=== PATIENT | male | born 1985 | race Caucasian/White ===

== ENCOUNTER 2016-07-23 06:37 | Emergency (ER) | payer OTHER ==
[2016-07-23] MEDS ORDERED: ONDANSETRON 4 MG/2 ML VIAL IVP STA (06:50)
[2016-07-23] MEDS ORDERED: SODIUM CHLORIDE 0.9% 2,000 ML IV ONE (06:50)
[2016-07-23] MEDS ORDERED: ONDANSETRON 4 MG/2 ML VIAL ONE (07:19)
[2016-07-23] MEDS ORDERED: IBUPROFEN 800 MG TABLET PO STA (07:25)
[2016-07-23] MEDS ORDERED: IBUPROFEN 800 MG TABLET PO ONE (07:33)
== END 2016-07-23 10:15 | disposition home or self-care (01) ==
DX: B34.9 Viral infection, unspecified (principal); E86.0 Dehydration
CPT/HCPCS: 36415; 71020; 80053; 83690; 85025; 87275; 87276; 96374; 99283; 99284; A9270

== ENCOUNTER 2018-05-26 22:53 | Emergency (ER) | payer OTHER ==
[2018-05-26] MEDS ORDERED: ONDANSETRON 4 MG/2 ML VIAL IVP STA (23:04)
[2018-05-26] MEDS ORDERED: SODIUM CHLORIDE 0.9% 1,000 ML IV ONE (23:04)
--- NOTE | 2018-05-26 23:05 | ED Physician Documentation ---
PD HPI ABD PAIN - Stated complaint Stated Complaint: ABD PX - Chief complaint Chief Complaint: Abd Pain - History of Present Illness Timing - onset: How many days ago (3) Timing - duration: Other (intermitten episodes of diarrhea) Timing - details: Gradual onset, Intermittant, Waxing and waning Severity Comments: moderate Quality: Cramping, Sharp Location: RLQ, LLQ Radiation: Other (no radiation) Improved by: Other (nothing) Worsened by: Other (nothing) Associated symptoms: Nausea, Diarrhea, Hematochezia. No: Fever, Hematemesis, Melena, Hematuria, Chest pain Similar symptoms before: No diagnosis Recently seen: Not recently seen Review of Systems Constitutional: denies: Fever, Chills Eyes: denies: Discharge Ears: denies: Ear pain Nose: denies: Congestion Throat: denies: Sore throat Cardiac: denies: Chest pain / pressure Respiratory: denies: Dyspnea GI: reports: Abdominal Pain, Nausea, Diarrhea : denies: Dysuria Skin: denies: Rash Neurologic: denies: Generalized weakness Immunocompromised: denies: Chemotherapy PD PAST MEDICAL HISTORY - Past Surgical History Past Surgical History: No - Present Medications Home Medications: Ambulatory Orders Medication Instructions Recorded Confirmed Ondansetron HCl [Zofran] 4 mg PO Q6HR PRN #30 tablet 05/27/18 - Allergies Allergies/Adverse Reactions: Allergies Allergy/AdvReac Type Severity Reaction Status Date / Time No Known Drug Allergies Allergy Verified 05/26/18 22:59 - Social History Does the pt smoke?: No Smoking Status: Never smoker Does the pt drink ETOH?: Yes Does the pt have substance abuse?: No - Immunizations Immunizations are current?: Yes - POLST Patient has POLST: No PD ED PE NORMAL - General General: Alert and oriented X 3, No acute distress - HEENT HEENT: Atraumatic, PERRL, EOMI, Ears normal - Neck Neck: Supple, no meningeal sign - Cardiac Cardiac: RRR, Strong equal pulses - Respiratory Respiratory: No respiratory distress, Clear bilaterally - Abdomen Abdomen: Soft, Non distended. No: Non tender (diffuse lower abdominal tenderness, no rebound or peritoneal signs) - Derm Derm: Normal color - Extremities Extremities: No deformity - Neuro Neuro: Alert and oriented X 3, Normal speech - Psych Psych: Normal affect Results - Vitals Vitals: Vital Signs - 24 hr 05/26/18 05/27/18 22:55 00:56 Temperature 36.3 C L Heart Rate 75 66 Respiratory 16 16 Rate Blood Pressure 141/84 H 122/68 O2 Saturation 97 97 Oxygen O2 Source Room air - Labs Labs: Laboratory Tests 05/26/18 05/26/18 05/26/18 23:15 23:25 23:25 WBC 6.4 RBC 4.57 L Hgb 13.8 L Hct 39.4 L MCV 86.2 MCH 30.2 MCHC 35.0 RDW 12.7 Plt Count 243 MPV 8.9 Neut # (Auto) 3.3 Lymph # (Auto) 2.1 Stanley # (Auto) 0.8 Eos # (Auto) 0.1 Baso # (Auto) 0.0 Absolute Nucleated RBC 0.00 Nucleated RBC % 0.0 Sodium 137 Potassium 3.5 Chloride 105 Carbon Dioxide 24 Anion Gap 8.0 BUN 17 Creatinine 1.1 Estimated GFR (MDRD) 79 L Glucose 102 H Calcium 8.7 Total Bilirubin 0.4 AST 23 ALT 20 Alkaline Phosphatase 72 Total Protein 7.1 Albumin 4.2 Globulin 2.9 Albumin/Globulin Ratio 1.4 Lipase 33 Urine Color YELLOW Urine Clarity CLEAR Urine pH 6.5 Ur Specific [place] <=1.005 Urine Protein NEGATIVE Urine Glucose (UA) NEGATIVE Urine Ketones NEGATIVE Urine Occult Blood NEGATIVE Urine Nitrite NEGATIVE Urine Bilirubin NEGATIVE Urine Urobilinogen 0.2 (NORMAL) Ur Leukocyte Esterase NEGATIVE Ur Microscopic Review NOT INDICATED Urine Culture Comments NOT INDICATED - Rads (name of study) CT abd/pelvis Radiology: Final report received, See rad report (IMPRESSION: Normal abdomen and pelvis CT) PD MEDICAL DECISION MAKING - ED course ED course: Reevaluation the patient is resting comfortably and appears to be in no acute distress. The patient was unable to give any stool sample to assess his diarrhea. Presently the patient appears appropriate for discharge and ongoing outpatient management. I discussed with him warning signs and recommended returning to the emergency department immediately for any worsening or any concerns. Departure - Departure Disposition: 01 Home, Self Care Clinical Impression: Abdominal pain Qualifiers: Abdominal location: lower abdomen, unspecified Qualified Code(s): R10.30 - Lower abdominal pain, unspecified Condition: Good Instructions: Abdominal Pain, Diarrhea Follow-Up: CARLENE DALY MD [Primary Care Provider] - Within 1 week Prescriptions: Ondansetron HCl [Zofran] 4 mg PO Q6HR PRN #30 tablet PRN Reason: Nausea / Vomiting Comments: Please return to the emergency department for worsening symptoms or any concerns
[2018-05-26] MEDS ORDERED: KETOROLAC 15 MG/ML VIAL IVP STA (23:29)
[2018-05-26] MEDS ORDERED: IOVERSOL 320 100 ML VIAL IVP ONE (23:37)
[2018-05-26 23:53] LABS: BILIRUBIN,URINE NEGATIVE (NEGATIVE); GLUCOSE, URINE (UA) NEGATIVE (NEGATIVE); KETONES,URINE (UA) NEGATIVE (NEGATIVE); LEUKOCYTE ESTERASE, URINE NEGATIVE (NEGATIVE); NITRITE,URINE NEGATIVE (NEGATIVE); OCCULT BLOOD,URINE NEGATIVE (NEGATIVE); PH,URINE 6.5 PH (5.0-7.5); PROTEIN,URINE NEGATIVE (NEGATIVE); UROBILINOGEN,URINE 0.2 (NORMAL) E.U./dL (NORMAL)
[2018-05-26 23:54] LABS: BASOPHILS % (AUTO) 0.6 %; EOSINOPHILS # (AUTO) 0.1 10^3/uL (0.0-0.7); EOSINOPHILS % (AUTO) 1.8 %; HGB - HEMOGLOBIN 13.8 g/dL (14.0-18.0); LYMPHOCYTES # (AUTO) 2.1 10^3/uL (1.5-3.5); MEAN CORPUSCULAR HEMOGLOBIN 30.2 pg (27.0-31.0); MEAN CORPUSCULAR VOLUME 86.2 fL (80.0-94.0); MEAN PLATELET VOLUME 8.9 fL (7.4-11.4); MONOCYTES # (AUTO) 0.8 10^3/uL (0.0-1.0); MONOCYTES % (AUTO) 12.2 %; NEUTROPHILS # (AUTO) 3.3 10^3/uL (1.5-6.6); NEUTROPHILS % (AUTO) 52.4 %; PLT - PLATELET COUNT 243 10^3/uL (130-450); RED BLOOD COUNT 4.57 10^6/uL (4.70-6.10); RED CELL DISTRIBUTION WIDTH 12.7 % (12.0-15.0); WHITE BLOOD COUNT 6.4 x10^3/uL (4.8-10.8)
[2018-05-26 23:58] LABS: CLARITY,URINE CLEAR (CLEAR)
[2018-05-27 00:08] LABS: ALBUMIN 4.2 g/dL (3.2-5.5); ALBUMIN/GLOBULIN RATIO 1.4 (1.0-2.2); BILIRUBIN,TOTAL 0.4 mg/dL (0.2-1.0); CALCIUM 8.7 mg/dL (8.5-10.3); CREATININE 1.1 mg/dL (0.6-1.2); TOTAL PROTEIN 7.1 g/dL (6.7-8.2)
[2018-05-27] MEDS ORDERED: IOVERSOL 320 100 ML VIAL IVP ONE (00:41)
--- NOTE | 2018-05-27 00:57 | CT Report ---
Reason: lower abdominal pain Procedure Date: 05/27/2018 Accession Number: [id number] / [id number] Procedure: CT - Abdomen/Pelvis W/ CPT Code: FULL RESULT: EXAM: CT ABDOMEN AND PELVIS EXAM DATE: 05/27/2018 12:40 AM. CLINICAL HISTORY: Lower abdominal pain. COMPARISONS: None. TECHNIQUE: Routine helical CT imaging was performed through the abdomen and pelvis. IV contrast: OPTI 320 100mL. Enteric contrast: No. Reconstructions: Coronal and sagittal. In accordance with CT protocol optimization, one or more of the following dose reduction techniques were utilized for this exam: automated exposure control, adjustment of mA and/or KV based on patient size, or use of iterative reconstructive technique. FINDINGS: Lung Bases: Unremarkable. Liver: Normal. No masses. Gallbladder/Bile Ducts: Unremarkable. Spleen: Normal. Pancreas: Normal. Adrenal Glands: Normal. Kidneys: Normal. No masses or hydronephrosis. Peritoneal Cavity/Bowel: Normal. No free fluid, free air or adenopathy. No masses or acute inflammatory process. The appendix is well visualized and normal. Pelvic Organs: Normal. The bladder and visualized pelvic organs are within normal limits. Vasculature: No aneurysms or other significant abnormality. Bones: No significant abnormality. Other: None. IMPRESSION: Normal abdomen and pelvis CT. No evident etiology for patient's pain. RADIA
[2018-05-27 01:23] VITALS: BP 108/76
== END 2018-05-27 01:24 | disposition home or self-care (01) ==
LOC: ED 22:53
DX: R10.30 Lower abdominal pain, unspecified (principal)
CPT/HCPCS: 36415; 74177; 80053; 81003; 83690; 85025; 96361; 96374; 96375; 99283; Q9967; 81001; 87086; 87798

== ENCOUNTER 2018-08-03 07:51 | Emergency (ER) | payer OTHER ==
[2018-08-03 08:02] VITALS: BP 133/85
[2018-08-03] MEDS ORDERED: DEXAMETHASONE 10 MG/ML VIAL PO STA (08:32)
--- NOTE | 2018-08-03 08:34 | ED Physician Documentation ---
PD HPI URI - Stated complaint Stated Complaint: FLU LIKE SX - Chief complaint Chief Complaint: General - History obtained from History obtained from: Patient - History of Present Illness Timing - onset: How many days ago (5) Timing duration: Days (5) Timing details: Gradual onset, Still present, Waxing and waning Associated symptoms: Fever, Chills, Nasal congestion, Rhinorrhea, Dry cough Contributing factors: Sick contact Improves by: Rest, Medication Similar symptoms before: Diagnosis (bronchitis) Recently seen: Not recently seen - Additional information Additional information: 33-year-old male previously healthy has developed a cough and congestion with muscle aches and pains about 5 days ago. He did have fever and chills with this and that resolved as did the muscle aches and his cough is gotten worse. The patient indicates that both his and daughter are sick his daughter is sick with strep his is sick with pneumonia. Review of Systems Constitutional: reports: Fever, Chills, Myalgias, Fatigue Eyes: denies: Decreased vision Ears: denies: Ear pain Nose: reports: Rhinorrhea / runny nose, Congestion Throat: reports: Sore throat Cardiac: denies: Chest pain / pressure, Palpitations Respiratory: reports: Cough. denies: Dyspnea GI: reports: Vomiting. denies: Abdominal Pain, Nausea : denies: Dysuria, Frequency PD PAST MEDICAL HISTORY - Past Medical History Cardiovascular: None Respiratory: None Neuro: None Endocrine/Autoimmune: None GI: None : None HEENT: None Psych: None Musculoskeletal: None Derm: None - Past Surgical History Past Surgical History: No - Present Medications Home Medications: Ambulatory Orders Medication Instructions Recorded Confirmed Amox/Clav 875/125 [Augmentin] 1 each PO Q12H #20 tablet 08/03/18 - Allergies Allergies/Adverse Reactions: Allergies Allergy/AdvReac Type Severity Reaction Status Date / Time No Known Drug Allergies Allergy Verified 08/03/18 08:03 - Social History Does the pt smoke?: No Smoking Status: Never smoker Does the pt drink ETOH?: Yes Does the pt have substance abuse?: No - Immunizations Immunizations are current?: Yes - POLST Patient has POLST: No PD ED PE NORMAL - General General: Alert and oriented X 3, No acute distress, Well developed/nourished - HEENT HEENT: Atraumatic, PERRL, EOMI, Moist mucous membranes, Pharynx benign, Other (Right TM is inflamed along a rounded umbo. 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, No motor deficit, No sensory deficit, Normal speech Eye Opening: Spontaneous Motor: Obeys Commands Verbal: Oriented GCS Score: 15 - Psych Psych: Normal mood, Normal affect Results - Vitals Vitals: Vital Signs - 24 hr 08/03/18 07:59 Temperature 36.1 C L Heart Rate 93 Respiratory 16 Rate Blood Pressure 133/85 H O2 Saturation 97 Oxygen O2 Source Room air PD MEDICAL DECISION MAKING - ED course Complexity details: considered differential, d/w patient ED course: 33-year-old male previously well has what appears to be a bimodal illness with myalgias improving and cough worsening he appears to have otitis on exam. He is treated with dexamethasone 10 mg orally and we will place him on some Augmentin. Departure - Departure Disposition: 01 Home, Self Care Clinical Impression: Otitis media Qualifiers: Otitis media type: suppurative Chronicity: acute Laterality: bilateral Recurrence: not specified as recurrent Spontaneous tympanic membrane rupture: without spontaneous rupture Qualified Code(s): H66.003 - Acute suppurative otitis media without spontaneous rupture of ear drum, bilateral Condition: Stable Instructions: ED Otitis Media Acute Adult Follow-Up: CARLENE DALY MD [Primary Care Provider] - Prescriptions: Amox/Clav 875/125 [Augmentin] 1 each PO Q12H #20 tablet Forms: Activity restrictions
== END 2018-08-03 08:41 | disposition home or self-care (01) ==
LOC: ED 07:51
DX: H66.003 Acute suppurative otitis media without spontaneous rupture of ear drum, bilateral (principal)
CPT/HCPCS: 99283

== ENCOUNTER 2018-08-06 12:43 | Outpatient (CLI) | payer OTHER ==
--- NOTE | 2018-08-07 20:36 | MRI Report ---
Reason: PAIN IN RIGHT KNEE Procedure Date: 08/06/2018 Accession Number: [id number] / [id number] Procedure: MRI - Knee RT W/O CPT Code: FULL RESULT: EXAM: RIGHT KNEE MRI WITHOUT CONTRAST EXAM DATE: 08/06/2018 01:06 PM. CLINICAL HISTORY: Right knee pain for 2 weeks after twisting injury on trampoline. COMPARISON: None. TECHNIQUE: Multiplanar, multisequence T1-weighted and fluid-sensitive sequences of the knee without contrast. Other: None. FINDINGS: Bones: No fractures or subluxations. No marrow edema. No bone lesions. Articular Cartilage: Unremarkable. Medial Meniscus: The medial meniscus is intact. Lateral Meniscus: The lateral meniscus is intact. Cruciate Ligaments: There is a full-thickness or near full-thickness tear at the proximal aspect of the anterior cruciate ligament. The posterior cruciate ligament is unremarkable. Collateral Ligaments: The medial collateral and lateral collateral ligamentous structures are intact. Tendons: The quadriceps, patellar, semimembranosus, and popliteus tendons are unremarkable. Musculature: No edema or fatty atrophy. Other: Small joint effusion. A medial synovial plica with a maximum thickness of 2 mm is present. No popliteal cyst. No loose bodies. The medial and lateral retinacula are intact. The subcutaneous tissues and fat pads are unremarkable. IMPRESSION: 1. Full-thickness or near full-thickness tear at the proximal aspect of the anterior cruciate ligament. 2. Small joint effusion. 3. Medial synovial plica with a maximum thickness of approximately 2 mm. [facility] MUSCULOSKELETAL RADIOLOGY SECTION
== END 2018-08-06 12:44 | disposition home or self-care (01) ==
LOC: DI 12:43
PROVIDERS: ATTEND General Practice
DX: S83.511A Sprain of anterior cruciate ligament of right knee, initial encounter (principal); M25.461 Effusion, right knee; M67.51 Plica syndrome, right knee

== ENCOUNTER 2018-09-22 06:03 | Day surgery (SDC) | payer OTHER ==
[2018-09-22] MEDS ORDERED: ceFAZolin 2 GM/50 ML 2 GM/50 ML BAG IV ONE (06:22)
[2018-09-22] MEDS ORDERED: LACTATED RINGERS 1,000 ML IV ONE ×2 (06:59→10:49)
--- NOTE | 2018-09-22 07:01 | ANESTHESIA ---
Pre-Anesthesia VS, & Labs - Diagnosis right acl tear - Procedure right arthroscopic anterior cruciate ligament repair Vital Signs: Temp Pulse Resp BP Pulse Ox 36.5 C 62 16 129/89 H 98 09/22/18 06:26 09/22/18 06:26 09/22/18 06:26 09/22/18 06:26 09/22/18 06:26 Height 6 ft Weight (kg) 99.79 kg Body Mass Index 30.5 - NPO >8 hours Home Medications and Allergies Home Medications: Ambulatory Orders No Known Home Medications 09/19/18 No Known Home Medications 09/19/18 Allergies/Adverse Reactions: Allergies Allergy/AdvReac Type Severity Reaction Status Date / Time No Known Drug Allergies Allergy Verified 09/19/18 13:42 Anes History & Medical History - Anesthetic History Anesthesia Complications: reports: No previous complications Family history of Anesthesia Complications: Denies Family history of Malignant Hyperthermia: Denies - Medical History Cardiovascular: reports: Hypertension Pulmonary: reports: None Gastrointestinal: reports: None Urinary: reports: None Neuro: reports: None Musculoskeletal: reports: Other Endocrine/Autoimmune: reports: None Blood Disorders: reports: None Skin: reports: None Smoking Status: Never smoker Exam General: Alert, Oriented x3, Cooperative, No acute distress Dental: Other (caps) Mouth Openin Fingerbreadth Neck Mobility: Normal Mallampati classification: II Thyromental Distance: greater than 6 cm Respiratory: Lungs clear, Normal breath sounds, No respiratory distress, No accessory muscle use Cardiovascular: Regular rate, Normal S1, Normal S2, No murmurs Mental/Cognitive Status: Alert/Oriented X3, Normal for patient Plan Anesthesia Type: General, Adductor Block Consent for Procedure(s) Verified and Reviewed: No Code Status: Attempt Resuscitation ASA classification: 2-Mild systemic disease Is this case an emergency?: No
[2018-09-22] MEDS ORDERED: BUPIVACAINE 0.25% PF 10 ML VIAL ONE (07:21)
[2018-09-22] MEDS ORDERED: EPINEPHrine 1 MG/ML AMP ONE (07:30)
[2018-09-22] MEDS ORDERED: GABAPENTIN 400 MG CAPSULE ONE (07:31)
[2018-09-22] MEDS ORDERED: CELECOXIB 100 MG CAPSULE PO ONE (07:32)
[2018-09-22] MEDS ORDERED: fentaNYL 250 MCG/5 ML VIAL IVP ONE (08:00)
[2018-09-22] MEDS ORDERED: ONDANSETRON 4 MG/2 ML VIAL IVP ONE (08:00)
[2018-09-22] MEDS ORDERED: LIDOCAINE-MPF 2% 5 ML VIAL IM ONE (08:00)
[2018-09-22] MEDS ORDERED: ACETAMINOPHEN 1,000 MG/100 ML 100 ML IV ONE (08:00)
[2018-09-22] MEDS ORDERED: DEXAMETHASONE 4 MG/ML VIAL IVP ONE (08:00)
[2018-09-22] MEDS ORDERED: MIDAZOLAM 2 MG/2 ML VIAL IVP ONE (08:00)
[2018-09-22] MEDS ORDERED: PROPOFOL 200 MG/20 ML VIAL IVP ONE (08:00)
[2018-09-22] MEDS ORDERED: BUPIVACAINE 0.25% PF 30 ML VIAL SUBQ ONE ×2 (08:21)
[2018-09-22] MEDS ORDERED: oxyCODONE 5 MG TABLET PO PRN (10:45)
[2018-09-22] MEDS ORDERED: ONDANSETRON 4 MG/2 ML VIAL ONE (10:45)
[2018-09-22] MEDS ORDERED: ONDANSETRON 4 MG/2 ML VIAL IVP PRN (10:45)
--- NOTE | 2018-09-22 10:45 | OPERATIVE REPORT ---
Operative Report - General Procedure Date: 09/22/18 Planned Procedure: Right ACL reconstruction Pre-Op Diagnosis: Right ACL Tear Procedure Performed: Right ACL Reconstruction with BTB autograft Plica excision (debridement) Loose body removal Post Op Diagnosis: Loose bodies. torn acl. medial plica - Procedure Note Primary Surgeon: David Olguin Secondary Surgeon: Luis Miguel Bueno Estimated Blood Loss (mL): 25 Complications: None - Other Other Information/Narrative: Indication For Surgery: 33-year-old male tore his right ACL while jumping on a trampoline zone in May. He performed rehabilitation and got near full strength and full range of motion yet his leg continued to feel unstable with daily activities. He desires to return to cutting sports and have full activities without limitations. The risks, benefits, and alternatives were d iscussed. Risks include pain, bleeding, infection, damage to nearby structures and cartilage, lack of symptom relief, need for further surgery, DVT, PE, stroke, and . Written consent was obtained. Examination Under Anesthesia: ROM equal to the contralateral side. Stable dial at 30 & 90 degrees. Stable to varus and valgus stressing at 0 & 30 degrees. 2B Vinicio. Abnormal Pivot shift. No mechanical sensation Diagnostic Arthroscopy: 2 Small soft loose bodies were removed. Synovium showed a medial plica that was resected. Patella cartilage normal. Trochlear cartilage normal. Medial femoral condyle cartilage normal. Medial tibial plateau cartilage normal. Medial meniscus normal. ACL was torn off of the lateral femur and scarred into place. PCL was normal. Lateral femoral condyle cartilage normal. Lateral tibial plateau cartilage normal. Lateral meniscus normal. Procedure in Detail: The patient was met in the pre-operative hold area on the day of the procedure. The operative extremity was signed and questions were answered. The patient was brought to the operating room and a general anesthetic was administered. Supine position was used and bony prominences were padded. An examination under anesthesia was performed. Standard prepping and draping was performed. A time out confirmed patient identification, laterality, procedure, allergies, antibiotics, and images. An Esmarch was used to exsanguinate the limb and the tourniquet was elevated to 250 mmHg. Total tourniquet time was 122 minutes. Patellar Tendon Graft [place]: A 6 cm incision was made just medial to the midline of the knee from the inferior pole of the patellar tendon to the tibial tubercle. Sharp dissection was brought down to the peritenon and full-thickness skin flaps were created. I then made a midline longitudinal incision in the peritenon and dissected it off the underlying patellar tendon. I then measured the width of the tendon and made farrar for the central third. A 10 blade was used to cut the tendon at these farrar in line with its fibers from the patella to the tibial tubercle. I then used Bovie electrocautery to kobe out my patellar and tibial bone blocks at 20 mm for the patella and a 30 mm for the tibia. I then straighten the knee and harvested a triangular bone block from the patella and a trapezoidal bone block from the tibia using a sagittal saw and a curved osteotome. There were no associated fractures. I then brought the graft to the back table and prepped it for the tibia to be 10 mm and the patella to be 9.5 mm. The patella was bulletized in a single 2.0 mm drill hole was placed. 2 drill holes were placed in the tibia. The final patellar bone block was 22 mm, tendon was 43 mm, tibial bone block was 30 mm, for a total length of 95. A standard diagnostic arthroscopy of the knee was performed through anterolateral and anteromedial portal sites. The anteromedial portal was created under direct visualization after localizing with a spinal needle. The findings can be found above. I then proceeded to remove the loose bodies with a sucker shaver. I also used the shaver to take down the medial plica. ACL Prep: I then used a sucker shaver and a radiofrequency ablation wand to release all residual ACL tissue off of the lateral wall. I debrided all excess tissue from the notch. I placed the camera into the anteromedial portal and ensured that I was cleared all the way to the back wall. I then brought the flip cutter aiming device through the lateral portal. I positioned into the central position of the [place] ACL footprint on the femur ensuring to leave a 2 mm back wall and stay off of the distal articular cartilage. Once satisfied with the position, the bullet was brought down to the skin and a kobe was made. A 3 cm longitudinal skin incision was made and the IT band was split in line with its fibers. A sen rake was used to retract the IT band posterior and the bullet was brought down to the lateral femoral wall. A 9mm flip cutter was then drilled into the notch. It was then flipped and the lateral wall was scored confirming an appropriate position. The bullet was then malleted into place and a 25mm femoral tunnel was drilled. Bony debris was removed with a shaver. A fiberstick suture was brought into the joint, retrieved out the lateral portal, and clamped to itself. I then identified the ACL footprint on the tibia and set the tibial guide at 55. I aimed to have the guide pin come out 7 mm anterior to the PCL and in line with the posterior borders of the anterior horn of the lateral meniscus, on the lateral border of the medial tibial spine. The guidewire was then brought into the joint. The knee was then straightened to confirm that it would not impinge on the notch. The guidewire was clamped with a [place]. The skin was then protected and the tibial tunnel was drilled with the appropriate sized reamer. The fiberwire was then brought through the tibial tunnel. The graft was then loaded onto the tightrope and the graft was marked at end of the bone block. The tightrope sutures were then passed and the button was brought out of the skin over the lateral femur. Point the femoral bone block was in the notch. I then grabbed the bone block with a Vipul and pushed posteriorly to be in line with the femoral tunnel. The bone block was then delivered into the femoral tunnel and the ink farrar could no longer be seen. I then sequentially tightened the tight rope sutures and guided the button back down beneath the IT band and visualized it on the lateral femoral cortex. The knee was then cycled 20 times with tension on the graft. I then placed a large bump under the distal femur the pulled on the tibial bone block sutures. There was 0 mm of excess bone block coming from the tibia. A posterior drawer was placed on to the proximal tibia. The guidewire was then placed into the tibial tunnel and the tibial screw was placed with excellent bony purchase. Vinicio had been restored. I then brought the arthroscope back into the joint and probed the graft finding it to have excellent tension. Final images were taken. Excess tibial bone block was removed with a rongeur and the wounds were copiously irrigated. I then placed morselized bone into the patellar defect and DBX putty into the tibial defect. The peritenon was then closed with a running 0 Vicryl. The IT band was closed with interrupted 0 Vicryl, the subdermal tissues with 2 O Vicryl, and the skin with running Monocryl. Steri-Strips were applied and 20 cc of 0.5% Marcaine was placed under the incisions. The tourniquet was then dropped and a sterile dressing was placed. In the process of straightening the knee a small clunk was felt. I then performed a Vinicio exam and found it to be 1A, the pivot shift was negative. I therefore concluded that the sensation I felt was not related to the ACL graft. The ROM brace was placed and was locked out in full extension. He was awakened and transferred to the recovery room. In the recovery room in AP notch and lateral x-ray of the knee showed excellent position of the bone blocks and the implants without complication.
[2018-09-22] MEDS ORDERED: HYDROmorphone 0.5 MG/0.5 ML SYRINGE ONE (11:04)
--- NOTE | 2018-09-22 11:28 | XRAY Report ---
Reason: post operative Procedure Date: 09/22/2018 Accession Number: [id number] / [id number] Procedure: XR - Knee 2 View RT CPT Code: FULL RESULT: EXAM: RIGHT KNEE RADIOGRAPHY EXAM DATE: 09/22/2018 10:41 AM. CLINICAL HISTORY: Postoperative. COMPARISON: KNEE RT W/O 08/06/2018 1:06 PM. TECHNIQUE: 3 views. FINDINGS: Bones: There are interval operative changes status post ACL reconstruction with a patellar tendon graft with soft tissue anchor overlying the lateral femoral condyle and anchoring device in the proximal tibia. Tibial tendon graft harvest site appears uncomplicated. The bone tunnels appear orthotopically positioned. Joints: No dislocation or subluxation. Postoperative air and fluid within the suprapatellar bursa. Soft Tissues: Mild expected postsurgical soft tissue swelling. IMPRESSION: Expected findings following ACL reconstruction with patella tendon graft as described. No evidence of immediate complication. RADIA
[2018-09-22] MEDS ORDERED: METOCLOPRAMIDE 10 MG/2 ML VIAL ONE (11:30)
[2018-09-22] MEDS ORDERED: oxyCODONE 5 MG TABLET ONE (11:54)
[2018-09-22 12:09] VITALS: BP 130/78
== END 2018-09-22 06:04 | disposition home or self-care (01) ==
LOC: SDS 06:03
PROVIDERS: ATTEND Orthopaedic Surgery
PROC: 0LBN0ZZ Excision of Right Lower Leg Tendon, Open Approach (ICD-10-PCS; 2018-09-22)
PROC: 0MRN47Z Replacement of Right Knee Bursa and Ligament with Autologous Tissue Substitute, Percutaneous Endoscopic Approach (ICD-10-PCS; principal; 2018-09-22 07:30)
DX: S83.511A Sprain of anterior cruciate ligament of right knee, initial encounter (principal); M67.51 Plica syndrome, right knee; I10 Essential (primary) hypertension; Z87.891 Personal history of nicotine dependence
CPT/HCPCS: 29888; 73560; A9270; C1713; J0131; J0690; J1170; J2765; J3010; J7120

== ENCOUNTER 2020-12-06 13:31 | Outpatient (CLI) | payer OTHER ==
[2020-12-06 14:05] VITALS: BP 137/84
--- NOTE | 2020-12-06 14:05 | SLEEP CARE CONSULTATION ---
Information from patient questionnaire entered by Mariela Quijano. I have reviewed and concur with the information entered by Mariela Quijano. This document represents the service I personally performed and the decisions made by me, Bernadette Vann ARNP. History of Present Illness Service Date and Time: 12/06/2020 1331 Reason for Visit: New patient Chief Complaint: reports: Unrefreshed sleep, Snoring, Excessive daytime sleepiness, Observed pauses in breathing, Fatigue Date of Onset: 5 years plus Usual bedtime: 9 - 10 pm Time it takes to fall asleep: 3-5 minutes Snores at night: Yes Observed to quit breathing while asleep: Yes Sleeps alone due to snoring: No Number of times waking at night: 0-1 Reasons for waking at night: reports: Choking, Snoring, Gasping for air (in his sleep), Other (noise) Toss, Turn, or Twitch while sleeping: Yes Recalls having dreams: Yes (sometimes) Usually gets out of bed at: work days - 5 am, weekends 8-9 am Feels refreshed in the morning: No Morning headache: No Sleepy or fatigued during the day: Yes Ever fallen asleep while driving: Yes (no accidents) Takes day naps: Yes (daily for about 20 minutes to an hour) Dreams during day naps: Yes (sometimes) Prior sleep studies: No Additional HPI information: I had the pleasure of seeing JOSHUA RAMIREZ today regarding the possibility of him having a sleep disorder. His current complaints are observed pauses in breathing, excessive daytime sleepiness, fatigue, snoring and unrefreshed sleep. He states he is always tired even if he gets over 8 hours of sleep at night. He snores but doesn't think it is very loud. His ex- has told him he has pauses in breathing and gasps in his sleep. He has times where he has been drowsy while driving but no accidents. He has multiple family members with obstructive sleep apnea that are on treatment. 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 Patient is and lives in [place]. Have you smoked in the past 12 months: No Cigarettes per day (20/pack): 20 Years of smokin Quit date: 2007 Smoking Pack Years: 5.0 Alcohol use: Yes Alcohol amount and frequency: 2-3 drinks 2-3 times a week Caffeine use: Yes Caffeine amount and frequency: 2 drinks 5 days a week Family History Family history of sleep disordered breathing: Yes Family Hx Sleep Apnea: Mother: Snoring, Sleep apnea - Treated, Father: Snoring, Sibling: Snoring, Sleep apnea - Treated Allergies and Home Medications Drug allergies reviewed: Yes (NKDA) Home medication list reviewed: Yes (no daily medications or supplements) Review of Systems Cardiovascular: denies: high blood pressure Gastrointestinal: reports: heartburn Neurological: denies: headaches Psychiatric: denies: anxiety, depression Ear/Nose/Throat: reports: wisdom teeth removed. denies: tonsillectomy Endocrine: denies: thyroid disease Physical Exam Blood Pressure: 137/84 Cuff size: wrist Heart Rate: 76 O2 Saturation: 97 Height: 6 ft Weight: 248 lb (with boots) Body Mass Index: 33.6 BMI Classification: Obese Neck circumference: 16.5 (inches) Soft palate: long Hard palate: normal Uvula: normal Uvula visualization: 50% Mallampati Class II Tongue: enlarged in size with teeth farrar on lateral edges Tonsils: small Neck: normal w/o lymphadenopathy or thyromegaly Heart: irregular rhythm Lungs: clear bilaterally Impression and Plan 1. Suspected Obstructive Sleep Apnea-Hypopnea Syndrome, as suggested by a history of loud and irregular snoring, observed cessation of breath while asleep, gasping or choking in sleep, unrefreshed sleep, cognitive impairment, and excessive daytime sleepiness. Narrow oropharynx and obesity are common predisposing factors for obstructive sleep apnea-hypopnea syndrome. I recommend proceeding to polysomnography to confirm the diagnosis and to assess severity. If the patient has significant sleep disordered breathing, a manual CPAP titration study will also be performed to find the optimal treatment pressure. I informed the patient of what the sleep studies involve and after some di scussion, obtained agreement to proceed. The pathophysiology of obstructive sleep apnea-hypopnea syndrome was discussed with the patient and health risks of cardiovascular and cerebrovascular disease if not treated. AASM brochure for obstructive sleep apnea-hypopnea syndrome given and reviewed. 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 Patient agreed to plan. * Schedule polysomnography +- manual CPAP titration study and return in 1-2 weeks after the study to discuss result and initiate therapy. * Avoid long distance driving or driving when feeling sleepy. * Avoid alcohol, sedative and muscle relaxant around bedtime. * Attempt to lose weight. * Review instructions provided by trained office staff on how to prepare for the sleep study. * Return for follow-up after sleep study completed. Counseling Topics: Weight loss health impact Visit Type: In Office Time Spent with Patient (minutes): 30 Provider Statement: I spent 100% of the Face to Face Visit with the patient with greater than 50% spent counseling the patient and coordination of care.
== END 2020-12-06 13:32 | disposition home or self-care (01) ==
LOC: SC 13:31
PROVIDERS: ATTEND Nurse Practitioner Family
DX: R06.83 Snoring (principal); G47.8 Other sleep disorders; G47.10 Hypersomnia, unspecified; R41.89 Other symptoms and signs involving cognitive functions and awareness; E66.9 Obesity, unspecified; Z68.33 Body mass index [BMI] 33.0-33.9, adult
CPT/HCPCS: 99203; 99212

== ENCOUNTER 2020-12-12 10:09 | Outpatient (CLI) | payer OTHER | END 2020-12-12 10:10 | disposition home or self-care (01) | LOC: SC 10:09 | PROVIDERS: ATTEND Nurse Practitioner Family | DX: G47.33 Obstructive sleep apnea (adult) (pediatric) (principal); R09.02 Hypoxemia | CPT/HCPCS: 95806 ==

== ENCOUNTER 2020-12-27 14:39 | Outpatient (CLI) | payer OTHER ==
--- NOTE | 2020-12-27 14:56 | SLEEP CARE CONSULTATION ---
Information from patient questionnaire entered by Mariela Quijano. I have reviewed and concur with the information entered by Mariela Quijano. This document represents the service I personally performed and the decisions made by me, Bernadette Vann ARNP. History of Present Illness Service Date and Time: 12/27/2020 1439 Initial [place] Sleepiness Scale score: 19 (in 2020) Current [place] Sleepiness Scale score: 19 Additional HPI information: JOSHUA RAMIREZ returns for follow up and results of the recently performed home sleep study. I explained the pathophysiology behind obstructive sleep apnea. We then spent quite a bit of time discussing different treatment options. For mild obstructive sleep apnea, surgery and oral appliance are alternatives to nasal CPAP therapy but in moderate or severe cases, nasal CPAP is the most effective and reliable treatment. Because apnea is primarily in supine position, then positional management therapy could be effective. Methods discussed such as positioning with pillows, using a T-shirt with tennis balls in the back, and shown commercial products that have a pillow format on back to prevent supine sleep. I reviewed the impact of weight changes on sleep apnea and strongly recommended losing weight. After some discussion, the patient opted to go with the nasal CPAP therapy. Nasal autoCPAP set at 4-15 cmH20 will be ordered with rationale explained. A manual titration study will be ordered if unable to find optimal pressure with office adjustments. I explained how CPAP machine works with sample devices [employer] Dreamstation and [facility] [facility] [place] [id number] and what to expect when using the machine. Using CPAP every night in order to get used to it was emphasized. Patient advised to put CPAP mask on before getting into bed so as not to fall asleep without CPAP. To assist acclimation to CPAP use, it could also be used for a short time during day while reading or watching TV. The patient was instructed to call the CPAP supplier to discuss any mechanical problem that may occur. If the mask given is uncomfortable or is difficult to keep on through the night even with adjustment, contact the CPAP supplier as many will replace with another mask style if notified before 30 days. If snoring or perceives is not getting enough air or too much air from the machine, notify this office. [facility] patient education PAP tips reviewed and given to patient. Patient counseled not drink alcohol less than 4 hours before bedtime as it can increase snoring and apnea. Patient was cautioned about risks of drowsy driving until sleepiness symptoms resolve. Sleep Study - Results Type of Sleep Study: Home sleep study Prior sleep studies: No Polysomnography/Home Sleep Study results: Physician Impression: The quality of the study is good. The length of the study is adequate (> 240 minutes). Please also see the tabulated and graphic data. 1. Obstructive Sleep Apnea-Hypopnea (ICD-10 G47.33), mild, with an AHI of 6.6/hr and alvin SaO2 of 78%. During the study, the patient had 3 apneas (3 obstructive, 0 central, 0 mixed) and 38 hypopneas. The longest episode lasted 66.0 seconds. The respiratory events occurred almost exclusively during supine sleep (supine AHI was 9.1 and non-supine, 3.40). 2. Hypoxemia (ICD-10 R09.02), moderate, with the lowest oxygen saturation of 78 % and 25.8 minutes with SaO2 under 90%. Baseline oxygen saturation was normal (Average oxygen saturation was 92%). Allergies and Home Medications Home medication list reviewed: Yes (no changes) Review of Systems Review of systems same as previous: Yes (no changes) Physical Exam Heart Rate: 90 O2 Saturation: 97 Height: 6 ft Weight: 249 lb Body Mass Index: 33.7 BMI Classification: Obese Impression and Plan 1. Obstructive Sleep Apnea-Hypopnea Syndrome, mild, with lowest oxygen saturation of 78%. Obviously this is the cause of the patients symptoms of unrefreshed sleep, and excessive daytime sleepiness. Positive pressure therapy could benefit his overall health and reduce cardiovascular and cerebrovascular adverse events. As mentioned above, the patient will be started on nasal autoCPAP therapy with pressure set at 4-15 cmH2O. A manual titration study will be completed if unable to find optimal treatment pressure with office adjustments. Compliance guidelines also reviewed. A copy of compliance guidelines will be given for reference at check out. Because the apnea is more severe supine, I instructed to avoid sleeping supine using pillow positioning until able to start CPAP use. 2. Hypoxemia, moderate, with the lowest oxygen saturation of 78 % and 25.8 m inutes with SaO2 under 90%. His baseline oxygen saturation was normal with an average oxygen saturation of 92%. * Nasal auto CPAP therapy, pressure at 4-15 cm H2O. * Attempt to lose weight. * Avoid alcohol consumption near bedtime. * Avoid supine sleep until using CPAP. * The patient is again cautioned about driving until sleepiness completely resolves. * Return one month after CPAP obtained. I will assess response to therapy and compliance at that time. Counseling Topics: Weight loss health impact Visit Type: In Office Time Spent with Patient (minutes): 14 Provider Statement: I spent 100% of the Face to Face Visit with the patient with greater than 50% spent counseling the patient and coordination of care.
== END 2020-12-27 14:40 | disposition home or self-care (01) ==
LOC: SC 14:39
PROVIDERS: ATTEND Nurse Practitioner Family
DX: G47.33 Obstructive sleep apnea (adult) (pediatric) (principal); R09.02 Hypoxemia; E66.9 Obesity, unspecified; Z68.33 Body mass index [BMI] 33.0-33.9, adult
CPT/HCPCS: 99212